=== PATIENT | female | born 1935 | race Caucasian/White ===

== ENCOUNTER → 2017-02-21 | Outpatient (REF) | payer OTHER, MEDICARE ==
[~2017-02-21] MED LIST: /ESCI10TA OR; /INSU7030 SC; /PANT40TA OR; /WARF25TA OR; ACET65TA OR; ACTO45TA OR; AMBI5TAB PO; AMLO5TAB2 PO; ASPI81TAEC PO; BENZ100C5 PO; BISA10SU2 RE; BISA5TA OR; CITA10TA5 PO; CLOP75TA2 PO; COZA50TA18 OR; DEMA20TA6 PO; FISH5CAP PO; FISHCAP PO; FOLI1TAB2 PO; FOLI800T OR; FURO20TA2 OR; FURO40TA2 PO; GLIP10TA18 OR; HYDROCODONE/APAP PO; INSUDET SC; INSUHUMDS SC; IPRASOL4 NEB; JANUVIA PO; METO25TA74 PO; MILKSUS OR; MULTIVIT PO; NYST100024 TOP; ONDA1TAB15 PO; PERC5TAB8 OR; PRED20TAB PO; SIMV20TA2 PO; VYTO10TA5 OR; ZETI10TA OR
== END ==
LOC: M LAB REF 13:21
PROVIDERS: ATTEND Internal Medicine Nephrology
DX: N39.0 Urinary tract infection, site not specified (principal)

== ENCOUNTER → 2018-08-14 | Outpatient (REF) | payer OTHER, MEDICARE ==
[2018-08-14 19:37] LABS: FERRITIN 97 NG/ML (8-252); IRON (FE) 47 UG/DL (50-170); PERCENT SATURATION 18.2 % (13.2-45.0); TOTAL IRON BINDING CAPACITY 258 UG/DL (250-450)
== END ==
LOC: M LAB REF 18:22
DX: D50.9 Iron deficiency anemia, unspecified (principal)
CPT/HCPCS: 83550

== ENCOUNTER 2018-12-27 19:01 | Emergency (ER) | payer MEDICARE ==
[~2018-12-27] VITALS: Ht 154.9 cm; Wt 118.2 kg
[~2018-12-27 19:01] MED LIST changes: -AMLO5TAB2 PO; +AMLO5TAB6 PO; +BENZ-18 PO; -BENZ100C5 PO; +FOLI1TAB11 PO; -FOLI1TAB2 PO; +IPRA0.00 NEB; -IPRASOL4 NEB; +METO1TAB32 PO; -METO25TA74 PO; -NYST100024 TOP; +NYST1POW9 TOP; -ONDA1TAB15 PO; +ONDA4TAB5 PO
[2018-12-27] MEDS ORDERED: ROCA0.25 PO (19:16)
[2018-12-27] MEDS ORDERED: BROV15NE IN (19:16)
[2018-12-27] MEDS ORDERED: CITA-231 PO (19:16)
[2018-12-27] MEDS ORDERED: PULM0.5S INH (19:16)
[2018-12-27] MEDS ORDERED: VITA10002 PO (19:17)
[2018-12-27] MEDS ORDERED: FLUTISP NARES (19:17)
[2018-12-27] MEDS ORDERED: INCR1INH IN (19:17)
[2018-12-27] MEDS ORDERED: PLAV1TAB2 PO (19:17)
[2018-12-27] MEDS ORDERED: ONDANSETRON 4 MG ORAL DISINTEGRATING TAB (Q0162 PER 1MG) As Ordered ONE (19:52)
[2018-12-27] MEDS ORDERED: ONDANSETRON 4 MG ORAL DISINTEGRATING TAB (Q0162 PER 1MG) PO ONE (20:00)
--- NOTE | 2018-12-27 20:11 | REP ---
Left femur four views: There is no fracture or dislocation. Mineralization is normal. The femoral acetabular and knee articulations are unremarkable. Impression: Negative left femur. Electronically Signed by Maico Buckley MD 12/27/2018 08:03 P
[2018-12-27] MEDS ORDERED: NAPR250T4 PO (20:37)
[2018-12-27] MEDS ORDERED: SOMA250T PO (20:37)
[2018-12-27] MEDS ORDERED: [UNRECOGNIZED DRUG - OTHER] XX (20:41)
[2018-12-27] MEDS ORDERED: CARISOPRODOL 350 MG TAB PO ONE (20:45)
[2018-12-27 21:15] VITALS: BP 187/77
== END 2018-12-27 21:17 | disposition home or self-care (01) ==
LOC: M ED 19:01
DX: S76.112A Strain of left quadriceps muscle, fascia and tendon, initial encounter (principal); X58.XXXA Exposure to other specified factors, initial encounter; Y92.89 Other specified places as the place of occurrence of the external cause; I10 Essential (primary) hypertension; E11.9 Type 2 diabetes mellitus without complications; Z79.899 Other long term (current) drug therapy; Z79.01 Long term (current) use of anticoagulants; Z79.4 Long term (current) use of insulin; Z79.82 Long term (current) use of aspirin
CPT/HCPCS: 73552; 99283; Q0162

== ENCOUNTER → 2019-08-28 | Outpatient (REF) | payer MEDICARE ==
[~2019-08-28] MED LIST changes: -/ESCI10TA OR; -/INSU7030 SC; -/PANT40TA OR; -/WARF25TA OR; +BROV15NE IN; +CITA40TA6 PO; +COUM1TAB18 OR; +CYAN100049 PO; +FLUTISP NARES; +INCR1INH IN; +LEXA1TAB OR; +NAPR250T4 PO; +NOVO1INJ4 SC; +PLAV1TAB2 PO; +PROT1TAB2 OR; +PULM0.5S INH; +ROCA0.25 PO; +SOMA250T PO; +[UNRECOGNIZED DRUG - OTHER] XX
[2019-08-28 18:24] LABS: PERCENT SATURATION 26.9 % (13.2-45.0)
== END ==
LOC: M LAB REF 17:04
PROVIDERS: ATTEND Nurse Practitioner Family
DX: D64.9 Anemia, unspecified (principal)